=== PATIENT | female | born 1975 | race African-American/Black ===

== ENCOUNTER 2021-06-23 13:57 | Emergency (ER) | payer OTHER ==
[~2021-06-23] VITALS: Ht 177.8 cm; Wt 88.0 kg
[~2021-06-23 13:57] MED LIST: NAPR220T66
[2021-06-23] MEDS ORDERED: BACITRACIN ZINC OINT UDPKT TOP ONE ×2 (15:15→21:00)
[2021-06-23] MEDS ORDERED: ACETAMINOPHEN 325MG TABLET PO ONE (15:15)
[2021-06-23] MEDS ORDERED: LIDOCAINE HCL/EPINEPHRINE 1%-EPI 1:100,000 20 ML VIAL INFIL ONE (15:15)
[2021-06-23 15:49] LABS: HEMATOCRIT. 34.1 % (36.0-48.0); HEMOGLOBIN. 10.9 g/dL (12.0-16.0); MEAN CORPUSCULAR HEMOGLOBIN 27.6 pg (28.0-32.0); MEAN CORPUSCULAR VOLUME 86.4 fL (81.0-99.0); MEAN PLATELET VOLUME 7.2 fl (7.4-10.4); PLATELET 343 x1000/uL (130-400); RED BLOOD CELL COUNT 3.94 mill/uL (4.2-5.4)
[2021-06-23 16:15] LABS: CHLORIDE 103 mEq/L (98-107)
[2021-06-23 18:32] LABS: PLATELET ESTIMATE NORMAL
[2021-06-23] MEDS ORDERED: BO1 TP (20:57)
[2021-06-23] MEDS ORDERED: TETANUS, DIPHTHERIA, PERTUSSIS VAC/PF 0.5ML (>10YR OLD) IM ONE (21:00)
[2021-06-23 21:22] VITALS: BP 148/78
== END 2021-06-23 21:23 | disposition home or self-care (01) ==
LOC: ER 13:57
DX: R55 Syncope and collapse (principal); R42 Dizziness and giddiness; Z98.51 Tubal ligation status
CPT/HCPCS: 12013; 36415; 71045; 80053; 83880; 84484; 85025; 90715; 93005; 99285; J3490; Z7610